=== PATIENT | male | born 1970 | race Caucasian/White ===

== ENCOUNTER → 2020-09-04 | Outpatient (CLI) | payer BC ==
[~2020-09-04] MED LIST: NAPR-685 PO; PRAV20TA2 PO
== END | disposition home or self-care (01) ==
LOC: RAD 07:33
PROVIDERS: ATTEND Internal Medicine Gastroenterology
DX: R16.1 Splenomegaly, not elsewhere classified (principal); K21.9 Gastro-esophageal reflux disease without esophagitis; K30 Functional dyspepsia; E78.00 Pure hypercholesterolemia, unspecified; G47.30 Sleep apnea, unspecified; I47.1 Supraventricular tachycardia; Z68.42 Body mass index [BMI] 45.0-49.9, adult; Z87.891 Personal history of nicotine dependence
CPT/HCPCS: 76705

== ENCOUNTER → 2020-09-09 | Outpatient (CLI) | payer BC | END | disposition home or self-care (01) | LOC: RAD 07:03 | PROVIDERS: ATTEND Internal Medicine Gastroenterology | DX: K21.9 Gastro-esophageal reflux disease without esophagitis (principal); K30 Functional dyspepsia; E78.00 Pure hypercholesterolemia, unspecified; I47.1 Supraventricular tachycardia; G47.30 Sleep apnea, unspecified; Z68.42 Body mass index [BMI] 45.0-49.9, adult; Z87.891 Personal history of nicotine dependence | CPT/HCPCS: 74240 ==

== ENCOUNTER 2021-02-24 11:54 | Emergency (ER) | payer BC ==
[~2021-02-24] VITALS: Ht 190.5 cm; Wt 178.1 kg
--- NOTE | 2021-02-24 12:25 | NUR ---
PT IN GOWN IN [facility] ATTACHED TO VS MONITORS AND CALL LIGHT WITHIN REACH. DANI RUBIO, AT FOR PT HISTORY AND ASSESSMENT.
[2021-02-24] MEDS ORDERED: MAALOX/HYOSCYAMINE/LIDOCAINE 45 ML BTL PO ONE (12:30)
[2021-02-24] MEDS ORDERED: ASPIRIN 81 MG TABLET CHEW PO ONE (12:30)
[2021-02-24] MEDS ORDERED: ASPIRIN 81 MG TABLET CHEW ONE (12:41)
[2021-02-24] MEDS ORDERED: MAALOX/HYOSCYAMINE/LIDOCAINE 45 ML BTL ONE (12:41)
--- NOTE | 2021-02-24 12:45 | NUR ---
PT MEDICATED PER SEP. PT AMBULATES TO RESTROOM WITH STEADY GAIT AT THIS TIME.
[2021-02-24 12:52] LABS: BASOPHILS % (AUTO) 1 % (0-1); EOSINOPHILS % (AUTO) 1 % (1-7); LYMPHOCYTES % (AUTO) 17 % (22-44); MEAN CORPUSCULAR HEMOGLOBIN 29.9 pg (27.5-34.5); MEAN CORPUSCULAR HGB CONC 34.4 g/dL (33.2-36.2); MEAN PLATELET VOLUME 7.6 fL (7.4-10.4); MONOCYTES % (AUTO) 7 % (2-9); NEUTROPHILS % (AUTO) 74 % (42-75); PLATELET COUNT 246 x10^3/uL (130-400); RED BLOOD COUNT 5.39 x10^6/uL (4.38-5.82); RED CELL DISTRIBUTION WIDTH 14.3 % (9.4-14.8)
[2021-02-24 13:00] LABS: ALANINE AMINOTRANSFERASE 33 U/L (12-78); ALBUMIN 3.8 g/dL (3.4-5.0); CALCIUM 8.4 mg/dL (8.5-10.1); CHLORIDE 108 mmol/L (98-107)
[2021-02-24 13:08] LABS: ANION GAP 4 mmol/L (5-15)
[2021-02-24 13:09] LABS: ALKALINE PHOSPHATASE 52 U/L (45-117); BILIRUBIN,TOTAL 0.6 mg/dL (0.2-1.0); CREATININE 0.93 mg/dL (0.7-1.3); TROPONIN I < 0.015 ng/mL (0.000-0.045)
--- NOTE | 2021-02-24 13:30 | NUR ---
ALL RESULTS BACK, PT FOR RECHECK.
--- NOTE | 2021-02-24 13:57 | NUR ---
ADD ON REPEAT TROPONIN.
--- NOTE | 2021-02-24 14:14 | NUR ---
VSS/UPDATED IN COMPUTER. PT DESCRIBES PRESSURE TO CHEST, RATED 2-3/10 AND UNCOMFORTABLE FEELING WITH HOT FLUSHING EPISODES THAT HE HAS TROUBLE DESCRIBING. POC REVIEWED, PT STATES WORRIED IF POSSIBLY DISCHARGED. ALL QUESTIONS ANSWERED. ALL ROOM MONITORING IN PLACE, PT ENCOURAGED TO USE CALL BUTTON IF ANOTHER EPISODE HAPPENS. CALL LIGHT WITHIN REACH, WARM BLANKET PROVIDED. REPORT TO MARKUS MIXON.
[2021-02-24 15:14] LABS: TROPONIN I < 0.015 ng/mL (0.000-0.045)
[2021-02-24] MEDS ORDERED: KETOROLAC 30 MG/1 ML ONE (15:23)
[2021-02-24 15:28] VITALS: BP 128/70
[2021-02-24] MEDS ORDERED: KETOROLAC 30 MG/1 ML IM ONE (15:30)
[2021-02-24] MEDS ORDERED: CEFOTETAN PMX 1GM/50ML 50 ML IVPB ONE (16:00)
[2021-02-24] MEDS ORDERED: SODIUM CHLORIDE 0.9% 1,000 ML IV ONE (16:00)
--- NOTE | 2021-02-24 16:04 | NUR ---
PT REC'VD DISCHARGE INSTRUCTIONS AND EDUCATION. PT HAD NO FURTHER QUESTIONS.
== END 2021-02-24 17:02 | disposition home or self-care (01) ==
LOC: ED 15:29
DX: K29.00 Acute gastritis without bleeding (principal); R07.89 Other chest pain; R94.31 Abnormal electrocardiogram [ECG] [EKG]; E78.5 Hyperlipidemia, unspecified; Z98.61 Coronary angioplasty status; Z87.891 Personal history of nicotine dependence
CPT/HCPCS: 36415; 71045; 80053; 83690; 84484; 85025; 93005; 96372; 99285; J1885